=== PATIENT | male | born 1995 | race Caucasian/White ===

== ENCOUNTER 2019-05-01 20:31 | Emergency (ER) | payer OTHER ==
[2019-05-01] MEDS: CYCLOBENZAPRINE 10 MG TAB PO (22:17)
[2019-05-01] MEDS: IBUPROFEN 600 MG TAB PO (22:17)
[2019-05-01] MEDS: BACITRACIN/POLYMYXIN 28.35 GM OINT TOP (22:18)
== END 2019-05-01 22:57 | disposition home or self-care (01) ==
LOC: FTE 20:31
DX: S50.811A Abrasion of right forearm, initial encounter (principal); M62.838 Other muscle spasm; V89.2XXA Person injured in unspecified motor-vehicle accident, traffic, initial encounter
CPT/HCPCS: 99283; Z7502